=== PATIENT | female | born 1990 | race Two or more races ===

== ENCOUNTER 2019-11-11 19:33 | Emergency (ER) | payer SELFPAY ==
[~2019-11-11] VITALS: Ht 165.1 cm; Wt 79.0 kg
[2019-11-11 19:38] VITALS: BP 150/70
[2019-11-11] MEDS ORDERED: IBUPROFEN 600MG TABLET PO ONE (20:45)
== END 2019-11-11 22:30 | disposition home or self-care (01) ==
LOC: ER 19:33
DX: M54.5 Low back pain (principal); V49.59XA Passenger injured in collision with other motor vehicles in traffic accident, initial encounter; Y93.89 Activity, other specified; Y92.89 Other specified places as the place of occurrence of the external cause; Y99.8 Other external cause status
CPT/HCPCS: 99283